=== PATIENT | male | born 1950 | race Caucasian/White ===

== ENCOUNTER 2019-01-08 20:44 | Inpatient (IN) ==
--- NOTE | 2019-01-08 20:50 | PROVIDER DOCUMENTATION ---
HPI-General Adult - General Stated Complaint: ams Time Seen by Provider: 01/08/19 20:49 Source: EMS Allergies/Adverse Reactions: Patient Allergies Allergy/AdvReac Type Severity Reaction Status Date / Time No Known Allergies Allergy Verified 11/13/13 11:38 Home Medications: Home Medication List Medication Instructions Recorded Confirmed Last Taken Type Metoprolol [Lopressor] 25 mg PO DAILY 07/10/14 01/08/19 Unknown History Tamsulosin [Flomax] 0.4 mg PO QHS 07/10/14 01/08/19 Unknown History Arginine/Glutamine/Calcium Bmb 1 ea PO BID 01/08/19 01/08/19 Unknown History [Harish Packet] Aspirin [Aspir-Low] 81 mg PO DAILY 01/08/19 01/08/19 Unknown History Cyanocobalamin (Vitamin B-12) 2,000 mcg PO DAILY 01/08/19 01/08/19 Unknown History [Vitamin B-12] Divalproex Sodium [Depakote] 500 mg PO QHS 01/08/19 01/08/19 Unknown History Donepezil [Aricept] 10 mg PO QHS 01/08/19 01/08/19 Unknown History Famotidine [Pepcid] 40 mg PO DAILY 01/08/19 01/08/19 Unknown History Fluoxetine HCl [Prozac] 20 mg PO DAILY 01/08/19 01/08/19 Unknown History Hydrochlorothiazide 25 mg PO DAILY 01/08/19 01/08/19 Unknown History Medroxyprogesterone Acetate 20 mg PO DAILY 01/08/19 01/08/19 Unknown History [Provera] Memantine HCl [Namenda] 10 mg PO BID 01/08/19 01/08/19 Unknown History Mirtazapine [Remeron] 15 mg PO QHS 01/08/19 01/08/19 Unknown History Potassium Chloride 20 meq PO DAILY 01/08/19 01/08/19 Unknown History Rivaroxaban [Xarelto] 2.5 mg PO BID 01/08/19 01/08/19 Unknown History Thiamine [Vitamin B-1] 100 mg PO DAILY 01/08/19 01/08/19 Unknown History Tramadol HCl [Ultram] 50 mg PO Q8H PRN 01/08/19 01/08/19 Unknown History - History of Present Illness -Gen Adult Nature of Presenting Problems: 68 YO M with known recent pna brought in by EMS for AMS that began around 1830 today while at dinner. Pt recently tx for pna with levaquin and completed 7 days. He is on 2L o2 PRN. Review of Systems - Adult - REVIEW OF SYSTEMS - ADULT ROS:: unobtainable per condition Constitutional: reports: see HPI Past History - Adult - PAST MEDICAL HISTORY-ADULT Review of Records: reports: Old Records Reviewed Major Childhood Illnesses: reports: denies history Cardiovascular: reports: HTN Respiratory: reports: denies history Gastrointestinal: reports: denies history Obstetrical/Gynecological: reports: denies history Genitourinary: reports: denies history Musculoskeletal: reports: denies history Neurological: reports: denies history Endocrine/Immune: reports: denies history Other Conditions: reports: denies history - PRIOR SURGERIES/PROCEDURES Surgical/Procedure History: denies: recent surgery - FAMILY HISTORY Family History: reviewed, not pertinent Physical Exam-General - PHYSICAL EXAM-ADULT Initial Vital Signs Reviewed: Yes - CONSTITUTIONAL General Appearance: mild distress, thin, other (incontinent with briefs) - EYES Eyes: other (pinpoint pupils) - HEAD, EARS, NOSE, MOUTH & THROAT HENMT: other (dry mucous membranes) - RESPIRATORY Respiratory: rhonchi (b/l) - CARDIOVASCULAR Cardiovascular: regular rate, rhythm - GASTROINTESTINAL (ABDOMEN) Abdominal Exam: soft - SKIN Integumentary: rash (rash around oral cavity consistent with impetigo) - NEUROLOGIC Neurologic: grossly normal - PSYCHIATRIC Psych/Mental Status: disoriented x 3 Progress - PLAN OF CARE/RESULTS Progress/Plan/Lab Results: Orders Category Date Time Status CHEST-1 VIEW [RAD] Stat Exams 01/08/19 20:48 Ordered ABG [RESP] Routine Lab 01/08/19 20:48 Ordered CBC WITH DIFF [HEME] Stat Lab 01/08/19 20:48 Uncollected COMPREHENSIVE METABOLIC PANEL [CHEM] Stat Lab 01/08/19 20:48 Uncollected PRO B-NATRIURETIC PEPTIDE Stat Lab 01/08/19 20:48 Ordered PROTIME WITH INR [COAG] Stat Lab 01/08/19 20:48 Ordered PTT [COAG] Stat Lab 01/08/19 20:48 Ordered TROPONIN T Stat Lab 01/08/19 20:48 Ordered TSH Stat Lab 01/08/19 20:48 Uncollected EKG [EKG] Stat Ther 01/08/19 20:48 Ordered Result Diagrams: 01/08/19 21:00 01/08/19 21:00 - REASSESSMENT Reassessment #1 Time Reassessed: 21:51 Status: improving (pt has been suctioned. He is now on 4L NC and satting 100%) - EKG 1 Time of EKG reading by physician:: 20:55 EKG Read and Signed by:: Oumar Ren EKG Interpretation (*Must complete 3 of following elements*): Abnormal Rate: 89 Rhythm: a fib QRS: normal, PVC's Prior EKG Comparison: unchanged from prior (July 2014) Comments: non specific ST changes with PVCs - CT/MRI 1 CT Study: Head Impression: See EMR Report (1. no acute intracranial hemorrhage or process. 2. 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 Old lacunar infarcs at the lentiform nuclei and thalami b/l. 3. Age related cerebral volume loss. B/l white matter disease, lickely ischemic microvascular in nature. Signed by Dr. Pooja Raymundo MD) - CONSULTS/PCP/HOSPITALIST Notification #1 *Consult/PCP/Hospitalist*: Dr. Moseley Time Discussed: 12:30 Reason/Comments: states to get CT brain Consult Disposition: Will see in ED Departure - Departure Date of Disposition Decision: 01/09/19 Time of Disposition Decision: 00:52 DIAGNOSIS: Leukocytosis, Hypoxia, AMS (altered mental status), Pneumonia Disposition: ADMITTED INPATIENT 09 Certified Medical Emergency: Emergent Condition: Stable Referrals and Follow-Ups: Jose Juan Cho III, MD [Primary Care Provider] - - Critical Care Note This patient required my direct & personal management of CC.: No Attestation - Physician/ KATIE Attestation The physician spent face to face time with patient:: Yes Advanced Practice Provider documentation review:: Supervising physician onsite and consulted in the evaluation and care of this patient. The physician did have a face to face encounter with the patient.
[2019-01-08 20:57] LABS: ALLEN TEST YES; BE 4.5 mmoll (-3.0-3.0); BLOOD TYPE ARTERIAL; HCO3-(ACT) 28.3 mmoll (20.0-26.0); METHB 1.3 % (0.0-1.5); O2(CT) 18.8 mL/dL (15.0-23.0); O2HB 93.6 % (95.0-99.0); PCO2(98.6) 39 mmHg (35-45); PO2(98.6) 68 mmHg (60-100); SAMPLE BLOOD; SAO2 97.1 % (95.0-100.0); THB 14.3 g/dL (11.5-17.4); pH(98.6) 7.47 (7.35-7.45)
[2019-01-08 20:59] LABS: MODALITY CANNULA
--- NOTE | 2019-01-08 21:13 | Diag Imaging Result Doc PS360 ---
EXAM: CHEST-1 VIEW HISTORY: hypoxia TECHNIQUE: Single view COMPARISON: 07/17/2014 FINDINGS: The lungs are well expanded. The heart is not enlarged. The vessels are not distended. There are increased markings in the lower left lung. No effusion identified. IMPRESSION: Small left basilar infiltrate versus atelectasis. Electronically signed by Parish Zurita 01/08/2019 9:10 PM
--- NOTE | 2019-01-08 21:19 | EKG Report ---
Test Performed on : 01/08/2019 8:50:05 PM Test Reason : RESP DISTRESS Blood Pressure : / mmHG Vent. Rate : 089 BPM Atrial Rate : 098 BPM P-R Int : 000 ms QRS Dur : 060 ms QT Int : 370 ms P-R-T Axes : 000 034 044 degrees QTc Int : 450 ms Atrial fibrillation. with occasional atrial-paced complexes and with premature ventricular or aberran tly conducted complexes. Nonspecific ST abnormality Abnormal ECG When compared with ECG of 10-JUL-2014 19:08, Electronic atrial pacemaker has replaced Sinus rhythm. ST elevation now present in Inferior leads ST now depressed in Anterior leads Nonspecific T wave abnormality, improved in Inferior leads Nonspecific T wave abnormality no longer evident in Lateral leads Unconfirmed Result
[2019-01-08 21:22] LABS: BASO# 0.07 X1000 (0.0-0.2); BASO% 0.3 % (0.0-0.8); EOS# 0.04 X1000 (0.0-0.7); EOS% 0.2 % (0.0-10.0); HEMATOCRIT 44.5 % (42.0-52.0); IMM GRAN# 0.23 X1000 (0.0-0.04); INR 1.23; LYMPH# 2.65 X1000 (1.2-3.4); LYMPH% 11.8 % (20.5-51.1); MCH 34.3 PG (27-31); MCHC 31.5 g/dL (33-37); MCV 109.1 FL (81-99); MONO# 2.93 X1000 (0.11-0.59); MONO% 13.1 % (1.7-9.3); MPV 11.7 FL (7.4-10.4); NEUT# 16.53 X1000 (1.4-6.5); NEUT% 73.6 % (42.2-75.2); PLT 249 X1000 (130-400); PROTIME 15.7 Seconds (11.0-16.0); RBC 4.08 XMIL (4.7-6.1); RDW 15.2 % (11.5-14.5); WBC 22.45 X1000 (4.8-10.8)
[2019-01-08 21:23] LABS: PTT 40.5 Seconds (22.3-41.8)
[2019-01-08 21:42] LABS: ALB/GLOB RATIO 0.9; ALBUMIN 3.2 g/dL (3.5-5.0); CALCIUM 9.3 mg/dL (8.8-10.2); CREATININE 1.4 mg/dL (0.7-1.2); POTASSIUM 3.8 mmol/L (3.5-5.1); TOTAL BILIRUBIN 0.56 mg/dL (0.20-1.00); TOTAL PROTEIN 6.9 g/dL (6.3-8.3)
[2019-01-08 21:57] LABS: URINE SOURCE CATH
[2019-01-08 22:27] LABS: BILIRUBIN URINE NEGATIVE (NEGATIVE); BLOOD URINE NEGATIVE (NEGATIVE); COLOR YELLOW; GLUCOSE URINE NEGATIVE (NEGATIVE); KETONE URINE NEGATIVE (NEGATIVE); LEUKOCYTES URINE NEGATIVE (NEGATIVE); NITRITE URINE NEGATIVE (NEGATIVE); PH URINE 6.5; PROTEIN URINE NEGATIVE (NEGATIVE); TURBIDITY URINE CLEAR (CLEAR); UROBILINOGEN URINE NORMAL (NORMAL)
[2019-01-08 22:28] LABS: UR EPITHELIAL CELLS <10 /HPF (<10); URINE BACTERIA NEGATIVE /HPF; URINE RBC <10 /HPF (<10); URINE WBC <10 /HPF (<10)
[2019-01-08] MEDS ORDERED: ROCEPHIN 1 GM in NS 50 ML IV ONE (23:10)
[2019-01-09] MEDS: NS 1,000 ML IV SCH ×2 (04:15→17:14)
[2019-01-09] MEDS: ZOSYN 3.375 GM in NS 50 ML IV SCH ×4 (04:22→22:21)
--- NOTE | 2019-01-09 07:40 | Diag Imaging Result Doc PS360 ---
EXAM: CT HEAD W/O CONTRAST INDICATION: AMS TECHNIQUE: This exam was performed using automated exposure control, adjustment of mA or kV according to patient size, and/or use of iterative reconstruction technique. COMPARISON: 07/10/2014 FINDINGS: There is stable left occipital encephalomalacia. There are stable chronic lacunar infarcts involving the deep lui matter bilaterally. There is stable advanced white matter microangiopathy. There is no definite acute infarct given the limited sensitivity of CT versus MRI. There is no discrete intracranial mass, mass effect, or intracranial hemorrhage. The surrounding soft tissues and bony structures are essentially unremarkable. IMPRESSION: Stable chronic changes as described. No evidence of acute intracranial pathology by CT. Electronically signed by Jose Juan Amado 01/09/2019 7:38 AM
--- NOTE | 2019-01-09 08:21 | HISTORY AND PHYSICAL ---
PRIMARY CARE PHYSICIAN: Unknown. CHIEF COMPLAINT: Altered mental status. HISTORY OF PRESENTING ILLNESS: 68-year-old male who was sent from [facility] due to patient being altered more than usual. The patient does have a history of hypertension, previous alcohol dependence and BPH. Apparently patient was not arousable at the facility. He is brought to the emergency department. He is moderately confused. He only answers a few questions and there was no family to provide any other history. Most of the history is obtained from the ER charting and previous records. PAST MEDICAL HISTORY: Includes hypertension, alcohol dependence, BPH, vascular dementia, adjustment disorder. PAST SURGICAL HISTORY: Unknown. ALLERGIES: No known drug allergies. CURRENT MEDICATIONS: He does not know and nursing staff will reconcile from shelter records. SOCIAL HISTORY: He has a history of smoking cigarettes. Previous history of alcohol abuse. No history of drug use. FAMILY HISTORY: No history of coronary disease. REVIEW OF SYSTEM: Unable to obtain due to patient being altered. PHYSICAL EXAMINATION: GENERAL: The patient is resting comfortably. He is without any respiratory distress. VITAL SIGNS: Temperature 97.2 degrees, pulse 92, respirations 20, blood pressure 101/56. HEENT: Atraumatic, normocephalic. PERRLA. NECK: No masses. CHEST: Rhonchi. CARDIOVASCULAR: Regular rate and rhythm. ABDOMEN: Soft. Positive bowel sounds. EXTREMITIES: Trace edema. NEUROLOGIC: Patient is arousable to follow some commands. : No bladder distention. SKIN: Warm. LABORATORIES AND STUDIES: Sodium 143, potassium 3.8, chloride 99, CO2 is 28, BUN is 27, creatinine is 1.4. Glucose 103. Total BC 22.45, hemoglobin 14.1, hematocrit. 44.5, platelets 249,000. Chest x-ray shows small left basilar infiltrate. CT of the head is pending. ASSESSMENT: A 68-year-old male with: 1. A history of vascular dementia. 2. Hypertension. 3. Alcohol dependence. 4. Adjustment disorder sent from [facility] due to patient being more altered than his baseline. He was evaluated in the emergency department. He was mildly confused and it was suspected he possibly had pneumonia. We will admit him for further evaluation and management assessment. 5. Altered mental status. 6. Suspected pneumonia. 7. Leukocytosis. 8. Hypertension. PLAN: 1. We will admit patient to medical floor with telemetry. 2. Continue with neuro checks. 3. We will check blood cultures. Start patient on IV antibiotics. 4. We will monitor blood pressure closely. 5. Restart his home medications. 6. Put patient on DVT prophylaxis with SCDs. 7. We will continue to follow and reassess. Make further recommendation based on patient's clinical course. cc: Khurram Moseley MD
[2019-01-09] MEDS ORDERED: NON-FORMULARY MED (Arginine/Glutamine/Calcium Bmb [Juven Packet] 1 EA) PO SCH (09:00)
[2019-01-09] MEDS: HYDROCHLOROTHIAZIDE PO SCH (10:25)
[2019-01-09] MEDS: VITAMIN B-1 PO SCH (10:25)
[2019-01-09] MEDS: LOPRESSOR PO SCH (10:25)
[2019-01-09] MEDS: PEPCID PO SCH (10:26)
[2019-01-09] MEDS: PROZAC PO SCH (10:26)
[2019-01-09] MEDS: NAMENDA PO SCH ×2 (10:26→20:25)
[2019-01-09] MEDS: XARELTO PO SCH ×2 (10:26→20:26)
[2019-01-09] MEDS: VITAMIN B-12 PO SCH (10:26)
[2019-01-09] MEDS: ASPIRIN EC PO SCH (12:33)
[2019-01-09] MEDS: DUONEB (A & A) INH SCH ×3 (15:33→23:41)
[2019-01-09] MEDS: REMERON PO SCH (20:25)
[2019-01-09] MEDS: FLOMAX PO SCH (20:25)
[2019-01-09] MEDS: DEPAKOTE PO SCH (20:25)
[2019-01-09] MEDS: ARICEPT PO SCH (20:25)
[2019-01-10] MEDS: DUONEB (A & A) INH SCH ×6 (03:18→22:44)
[2019-01-10] MEDS: ZOSYN 3.375 GM in NS 50 ML IV SCH ×4 (03:35→21:56)
[2019-01-10 05:25] LABS: BASO# 0.08 X1000 (0.0-0.2); BASO% 0.5 % (0.0-0.8); EOS# 0.29 X1000 (0.0-0.7); EOS% 1.9 % (0.0-10.0); HEMATOCRIT 38.2 % (42.0-52.0); HEMOGLOBIN 11.7 g/dL (14.0-18.0); IMM GRAN# 0.17 X1000 (0.0-0.04); IMM GRAN% 1.1 % (0.0-0.5); LYMPH# 3.17 X1000 (1.2-3.4); LYMPH% 20.9 % (20.5-51.1); MCH 33.9 PG (27-31); MCHC 30.6 g/dL (33-37); MCV 110.7 FL (81-99); MONO# 1.66 X1000 (0.11-0.59); MONO% 10.9 % (1.7-9.3); MPV 11.3 FL (7.4-10.4); NEUT# 9.81 X1000 (1.4-6.5); NEUT% 64.7 % (42.2-75.2); PLT 222 X1000 (130-400); RBC 3.45 XMIL (4.7-6.1); RDW 15.2 % (11.5-14.5); WBC 15.18 X1000 (4.8-10.8)
[2019-01-10 05:58] LABS: CALCIUM 8.7 mg/dL (8.8-10.2); CREATININE 1.3 mg/dL (0.7-1.2); POTASSIUM 3.1 mmol/L (3.5-5.1)
--- NOTE | 2019-01-10 06:58 | Diag Imaging Result Doc PS360 ---
CHEST-PORTABLE - 01/10/2019 INDICATION: dyspnea COMPARISON: 01/08/2019 FINDINGS: Lung volumes are much lower. There is worsening ill-defined interstitial infiltrate in the lung bases bilaterally, nonspecific. Heart size is top normal. No pneumothorax or large pleural effusion. IMPRESSION: Worsening from prior. Electronically signed by Alexx Siddiqui 01/10/2019 6:56 AM
[2019-01-10] MEDS: HYDROCHLOROTHIAZIDE PO SCH (09:48)
[2019-01-10] MEDS: ASPIRIN EC PO SCH (09:48)
[2019-01-10] MEDS: VITAMIN B-1 PO SCH (09:48)
[2019-01-10] MEDS: PEPCID PO SCH (09:49)
[2019-01-10] MEDS: VITAMIN B-12 PO SCH (09:49)
[2019-01-10] MEDS: LOPRESSOR PO SCH (09:49)
[2019-01-10] MEDS: PROZAC PO SCH (09:50)
[2019-01-10] MEDS: NAMENDA PO SCH ×2 (09:51→20:16)
[2019-01-10] MEDS ORDERED: KLOR-CON PO ONE (11:08)
[2019-01-10] MEDS: XARELTO PO SCH (11:26)
--- NOTE | 2019-01-10 12:28 | PROGRESS NOTE ---
DATE: 01/10/2019 SUBJECTIVE: This patient seems to be resting comfortably in bed. He is tolerating p.o. He has bilateral lower lung infiltrates compatible with pneumonia. Vital signs are stable. White blood cell count decreased from 22,000 to 15,000. We will monitor for now. I will replace the potassium. Kidney function probably at baseline. OBJECTIVE: Vital Signs: Temperature 97.9 degrees, pulse 62, respiratory rate 18, blood pressure 116/52, oxygen saturation 99 on 3 L of nasal cannula. HEENT: Head normocephalic. No trauma. PERRLA. Neck: Supple. No JVD. No masses. Central trachea. Chest: Decreased breath sounds at the bases with crepitus. Abdomen: Soft, nontender, nondistended. No hepatosplenomegaly. Extremities: Trace edema. No clubbing, no cyanosis. Neurological Examination: The patient is sleepy but arousable. He is oriented to name. He is following commands. Laboratory: WBC 15.1, hemoglobin 11.7, hematocrit 38.2, platelets 222,000. Sodium 144, potassium 3.1, chloride 102, bicarbonate 29, BUN 22, creatinine 1.3, glucose 110, calcium 8.7. ASSESSMENT AND PLAN: 1. Sepsis due to lower lobe pneumonia. Continue with antibiotics. WBC seems to be better. He has been placed on Zosyn. Blood culture negative so far. Pending sputum culture. 2. Bilateral lower lobe pneumonia, as above. 3. Hypokalemia. I will replace the potassium. 4. Chronic kidney disease, seems to be his baseline. 5. History of vascular dementia with worsening baseline, probably due to this infection. We will continue to monitor. He seems to be more stable. 6. Hypertension, stable. Continue with same medications. 7. History of alcohol dependence. Aware. 8. Altered mental status. Like I mentioned before, this patient has a history of vascular dementia but he was transferred to this medical center due to worsening of his mental condition. He was found to have a pneumonia, which has been treated. cc: Bryant Freedman MD
[2019-01-10] MEDS: ARICEPT PO SCH (20:15)
[2019-01-10] MEDS: FLOMAX PO SCH (20:15)
[2019-01-10] MEDS: REMERON PO SCH (20:15)
[2019-01-10] MEDS: NON-FORMULARY MED PO SCH (20:15)
[2019-01-10] MEDS: DEPAKOTE PO SCH (20:16)
[2019-01-11] MEDS: ZOSYN 3.375 GM in NS 50 ML IV SCH ×2 (02:47→11:43)
[2019-01-11] MEDS: DUONEB (A & A) INH SCH ×6 (03:10→23:23)
[2019-01-11 05:31] LABS: BASO# 0.09 X1000 (0.0-0.2); BASO% 0.6 % (0.0-0.8); EOS# 0.32 X1000 (0.0-0.7); EOS% 2.2 % (0.0-10.0); HEMATOCRIT 40.9 % (42.0-52.0); IMM GRAN# 0.13 X1000 (0.0-0.04); IMM GRAN% 0.9 % (0.0-0.5); LYMPH# 3.11 X1000 (1.2-3.4); LYMPH% 20.9 % (20.5-51.1); MCH 34.6 PG (27-31); MCHC 31.8 g/dL (33-37); MCV 108.8 FL (81-99); MONO# 1.68 X1000 (0.11-0.59); MONO% 11.3 % (1.7-9.3); NEUT# 9.53 X1000 (1.4-6.5); NEUT% 64.1 % (42.2-75.2); PLT 231 X1000 (130-400); RBC 3.76 XMIL (4.7-6.1); RDW 14.9 % (11.5-14.5); WBC 14.86 X1000 (4.8-10.8)
[2019-01-11 06:07] LABS: CALCIUM 8.9 mg/dL (8.8-10.2); CREATININE 1.2 mg/dL (0.7-1.2); POTASSIUM 3.5 mmol/L (3.5-5.1)
[2019-01-11] MEDS: VITAMIN B-1 PO SCH (08:16)
[2019-01-11] MEDS: VITAMIN B-12 PO SCH (08:16)
[2019-01-11] MEDS: LOPRESSOR PO SCH (08:16)
[2019-01-11] MEDS: PROZAC PO SCH (08:17)
[2019-01-11] MEDS: PEPCID PO SCH (08:17)
[2019-01-11] MEDS: ASPIRIN EC PO SCH (08:17)
[2019-01-11] MEDS: NON-FORMULARY MED PO SCH ×2 (08:17→21:26)
[2019-01-11] MEDS: NAMENDA PO SCH ×2 (08:17→21:25)
[2019-01-11] MEDS: HYDROCHLOROTHIAZIDE PO SCH (08:17)
[2019-01-11] MEDS: PROVERA PO SCH ×2 (11:44→11:56)
[2019-01-11] MEDS ORDERED: VANCOMYCIN IV PER PHARMACY MISC SCH (14:45)
[2019-01-11] MEDS ORDERED: MAGNESIUM SULFATE 2 GM/S.W.I. 2 GM/50 ML IVPB IV ONE (15:07)
[2019-01-11] MEDS ORDERED: VANCOMYCIN 1,650 MG in NS 250 ML IV ONE (16:00)
[2019-01-11] MEDS: MAXIPIME 2 GM in NS 100 ML IV SCH (16:26)
[2019-01-11] MEDS ORDERED: HEPARIN SUBQ SCH (21:00)
[2019-01-11] MEDS: FLOMAX PO SCH (21:25)
[2019-01-11] MEDS: ARICEPT PO SCH (21:25)
[2019-01-11] MEDS: REMERON PO SCH (21:25)
[2019-01-11] MEDS: DEPAKOTE PO SCH (21:25)
[2019-01-12] MEDS: CALMOSEPTINE OINTMENT TOP PRN (03:08)
[2019-01-12] MEDS: MAXIPIME 2 GM in NS 100 ML IV SCH ×2 (03:09→14:09)
[2019-01-12] MEDS: DUONEB (A & A) INH SCH ×6 (03:19→23:12)
--- NOTE | 2019-01-12 03:51 | PROGRESS NOTE ---
DATE: 01/11/2019 SUBJECTIVE: The patient is resting comfortably in bed. No acute events noted overnight. OBJECTIVE: Vital signs: Temperature 98 degrees, blood pressure 106/42, heart rate 72, respirations 12, O2 saturation 97% on room air. General: This is a chronically ill-appearing elderly male lying in bed in no acute distress. Heart: S1, S2 normal. Regular rate and rhythm. Lungs: Equal air entry bilaterally. No wheezing, no rales, no rhonchi. Abdomen: Positive bowel sounds, soft, nontender, nondistended. Extremities: No edema, no cyanosis. Neuro: The patient is awake and alert. LABS: White blood cell count 14, hemoglobin 13, hematocrit 40, platelets 231,000. Sodium 143, potassium 3.5, chloride 103, CO2 24, BUN 19, creatinine 1.2, glucose 87. Magnesium 1.5. ASSESSMENT AND PLAN: 1. Pneumonia. Continue with broad spectrum antibiotics. The x-ray from yesterday looks a little worse. We will switch the patient's antibiotics. Continue to follow up on the blood and sputum cultures. 2. Acute kidney injury on chronic kidney disease. Improved. Will continue to monitor closely. 3. Hypomagnesemia. Will replace the patient's magnesium. 4. History of alcohol dependence. Aware. 5. Hypertension. Controlled. 6. Dementia. Aware. 7. Vitamin B12 deficiency. Continue with vitamin B12 replacement. 8. Benign prostatic hypertrophy. Continue on Flomax. 9. Deep vein thrombosis prophylaxis. Will start the patient on heparin. cc: Sidra Sherman MD
[2019-01-12 05:36] LABS: BASO# 0.08 X1000 (0.0-0.2); BASO% 0.6 % (0.0-0.8); EOS# 0.49 X1000 (0.0-0.7); EOS% 3.6 % (0.0-10.0); HEMATOCRIT 41.8 % (42.0-52.0); HEMOGLOBIN 13.3 g/dL (14.0-18.0); IMM GRAN# 0.23 X1000 (0.0-0.04); IMM GRAN% 1.7 % (0.0-0.5); LYMPH# 2.95 X1000 (1.2-3.4); LYMPH% 21.7 % (20.5-51.1); MCH 33.7 PG (27-31); MCHC 31.8 g/dL (33-37); MCV 105.8 FL (81-99); MONO# 1.35 X1000 (0.11-0.59); MONO% 9.9 % (1.7-9.3); MPV 10.4 FL (7.4-10.4); NEUT# 8.51 X1000 (1.4-6.5); NEUT% 62.5 % (42.2-75.2); PLT 267 X1000 (130-400); RBC 3.95 XMIL (4.7-6.1); RDW 14.8 % (11.5-14.5); WBC 13.61 X1000 (4.8-10.8)
[2019-01-12 05:45] LABS: AGAP 8; ALBUMIN 2.6 g/dL (3.5-5.0); BUN 17 mg/dL (8-22); CALCIUM 8.8 mg/dL (8.8-10.2); CHLORIDE 99 mmol/L (98-107); COSMO 268; CREATININE 1.1 mg/dL (0.7-1.2); ESTIMATED GFR > 60; GLUCOSE 91 mg/dL (70-104); PHOSPHORUS 2.9 mg/dL (2.7-4.5); POTASSIUM 3.4 mmol/L (3.5-5.1); SODIUM 133 mmol/L (136-145); TCO2 26 mmol/L (25-35)
--- NOTE | 2019-01-12 06:28 | Diag Imaging Result Doc PS360 ---
EXAM: CHEST-1 VIEW HISTORY: pneumonia TECHNIQUE: Chest single view COMPARISON: 01/10/2019 FINDINGS: Poor inspiratory effort. Heart is borderline mildly prominent. No pleural effusions identified. Slight worsening in the lower left lung infiltrates. There are scattered granuloma. IMPRESSION: Mild interval worsening Electronically signed by Parish Zurita 01/12/2019 6:26 AM
[2019-01-12] MEDS ORDERED: KLOR-CON PO ONE (06:55)
[2019-01-12] MEDS: PEPCID PO SCH (10:00)
[2019-01-12] MEDS: VITAMIN B-12 PO SCH (10:00)
[2019-01-12] MEDS: PROVERA PO SCH ×2 (10:00→10:02)
[2019-01-12] MEDS: HYDROCHLOROTHIAZIDE PO SCH (10:00)
[2019-01-12] MEDS: LOPRESSOR PO SCH (10:01)
[2019-01-12] MEDS: NAMENDA PO SCH ×2 (10:01→21:17)
[2019-01-12] MEDS: VITAMIN B-1 PO SCH (10:02)
[2019-01-12] MEDS: PROZAC PO SCH (10:02)
[2019-01-12] MEDS: NON-FORMULARY MED PO SCH ×2 (10:02→22:25)
[2019-01-12] MEDS: ASPIRIN EC PO SCH (10:02)
--- NOTE | 2019-01-12 19:26 | PROGRESS NOTE ---
DATE: 01/12/2019 SUBJECTIVE: The patient is resting comfortably in bed. No acute events noted overnight. OBJECTIVE: Vital Signs: Temperature 98.6 degrees, blood pressure 112/53, heart rate 65, respirations 16, O2 saturation 97% on room air. General: This is a chronically ill-appearing elderly male lying in bed in no acute distress. Heart: S1, S2 normal. Regular rate and rhythm. Lungs: Equal air entry bilaterally. Abdomen: Positive bowel sounds. Soft, nontender, nondistended. Extremities: No edema. No cyanosis. Neurologic: The patient is awake and alert. LABORATORY DATA: White blood cell count 13, hemoglobin 13, hematocrit 41, platelets 267,000. Sodium 133, potassium 3.4, chloride 99, CO2 26, BUN 17, creatinine 1.1, glucose 91. Chest x-ray shows slight worsening in the left lung infiltrates. ASSESSMENT AND PLAN: 1. Acute hypoxemic respiratory failure. The patient has pneumonia. 2. Pneumonia. Continue with antibiotic therapy, bronchodilator therapy and supplemental oxygen. 3. Hypokalemia. Replace patient's potassium. 4. Dementia. Aware. 5. History of alcohol dependence. Aware. 6. Hypertension. Controlled. 7. Benign prostatic hypertrophy. Continue on Flomax. 8. Vitamin B12 deficiency. Continue with vitamin B12 replacement. 9. Deep vein thrombosis prophylaxis. Continue on heparin. 10. Disposition. The patient is from [place]. He will return there once medically stable. cc: Sidra Sherman MD
[2019-01-12] MEDS: FLOMAX PO SCH (21:17)
[2019-01-12] MEDS: ARICEPT PO SCH (21:17)
[2019-01-12] MEDS: REMERON PO SCH (21:17)
[2019-01-12] MEDS: DEPAKOTE PO SCH (21:17)
[2019-01-13] MEDS: MAXIPIME 2 GM in NS 100 ML IV SCH ×2 (01:49→18:35)
[2019-01-13] MEDS: VANCOMYCIN 1,300 MG in NS 250 ML IV SCH (03:04)
[2019-01-13] MEDS: DUONEB (A & A) INH SCH ×6 (03:10→22:45)
[2019-01-13 06:03] LABS: BASO# 0.07 X1000 (0.0-0.2); BASO% 0.4 % (0.0-0.8); EOS# 0.64 X1000 (0.0-0.7); HEMATOCRIT 39.8 % (42.0-52.0); HEMOGLOBIN 12.7 g/dL (14.0-18.0); IMM GRAN# 0.28 X1000 (0.0-0.04); IMM GRAN% 1.8 % (0.0-0.5); LYMPH# 3.83 X1000 (1.2-3.4); LYMPH% 24.1 % (20.5-51.1); MCH 34.3 PG (27-31); MCHC 31.9 g/dL (33-37); MCV 107.6 FL (81-99); MONO# 1.58 X1000 (0.11-0.59); MONO% 9.9 % (1.7-9.3); MPV 10.9 FL (7.4-10.4); NEUT# 9.49 X1000 (1.4-6.5); NEUT% 59.8 % (42.2-75.2); PLT 270 X1000 (130-400); RDW 15.5 % (11.5-14.5); WBC 15.89 X1000 (4.8-10.8)
[2019-01-13 06:19] LABS: ALBUMIN 2.7 g/dL (3.5-5.0); CALCIUM 8.8 mg/dL (8.8-10.2); CREATININE 1.2 mg/dL (0.7-1.2); PHOSPHORUS 2.4 mg/dL (2.7-4.5); POTASSIUM 3.8 mmol/L (3.5-5.1)
[2019-01-13] MEDS: NON-FORMULARY MED PO SCH ×2 (09:05→20:13)
[2019-01-13] MEDS: PROVERA PO SCH (09:05)
[2019-01-13] MEDS: HYDROCHLOROTHIAZIDE PO SCH (09:06)
[2019-01-13] MEDS: ASPIRIN EC PO SCH (09:06)
[2019-01-13] MEDS: PEPCID PO SCH (09:06)
[2019-01-13] MEDS: VITAMIN B-12 PO SCH (09:06)
[2019-01-13] MEDS: LOPRESSOR PO SCH (09:06)
[2019-01-13] MEDS: PROZAC PO SCH (09:07)
[2019-01-13] MEDS: VITAMIN B-1 PO SCH (09:07)
[2019-01-13] MEDS: NAMENDA PO SCH ×2 (09:07→20:12)
--- NOTE | 2019-01-13 09:58 | Diag Imaging Result Doc PS360 ---
EXAM: CT THORAX W/O CONTRAST INDICATION: pneumonia TECHNIQUE: This exam was performed using automated exposure control, adjustment of mA or kV according to patient size, and/or use of iterative reconstruction technique. COMPARISON: None. FINDINGS: There is excessive respiratory motion artifact, which may obscure fine details. There are patchy airspace infiltrates seen throughout the left lower lobe and the anteroinferior aspect of the left upper lobe. There are much milder infiltrates involving the right lower lobe and right middle lobe. This is suggestive of pneumonia. There is also a component of subsegmental atelectasis involving the left lower lobe and the lingula. There are scattered calcified granulomata bilaterally. There is no significant pleural fluid collection and no pneumothorax. There is no cardiomegaly. There is aortic and coronary artery atherosclerotic calcification. There is no evidence of significant mediastinal or hilar lymphadenopathy. Limited views of the upper abdomen are essentially unremarkable. There is no evidence of acute osseous abnormality. IMPRESSION: 1.Moderate patchy airspace infiltrates involving the left lower lung zone and very mild infiltrates at the right lower lung zone suggesting pneumonia and a likely component of atelectasis on the left. 2.Other incidental/nonacute findings detailed above. Electronically signed by Jose Juan Amado 01/13/2019 9:56 AM
--- NOTE | 2019-01-13 18:03 | PROGRESS NOTE ---
DATE: 01/13/2019 SUBJECTIVE: The patient is resting comfortably in bed. No acute events noted overnight. OBJECTIVE: Vital Signs: Temperature 98.3 degrees, blood pressure 138/66, heart rate 94, respirations 16, O2 saturation is 94% on 3 L nasal cannula. Intake 750. General: This is a chronically ill-appearing, elderly male, lying in bed in no acute distress. Heart: S1, S2 normal. Regular rate and rhythm. Lungs: Equal air entry bilaterally. Coarse breath sounds bilaterally. Abdomen: Positive bowel sounds. Soft, nontender, nondistended. Extremities: No edema. No cyanosis. Neurologic: The patient is alert and oriented x3. LABORATORY DATA: White blood cell count 15, hemoglobin 12, hematocrit 39, platelets 270,000. Sodium 139, potassium 3.8, chloride 104, CO2 of 25, BUN 16, creatinine 1.2, glucose 91. ASSESSMENT AND PLAN: 1. Acute hypoxemic respiratory failure. 2. Bilateral lobe pneumonia. Continue with cefepime and Zyvox. 3. Dementia. Aware. 4. Hypertension. Controlled. 5. Benign prostatic hypertrophy. Continue on Flomax. 6. Vitamin B12 deficiency. Continue with vitamin B12 replacement. 7. Deep vein thrombosis prophylaxis. Continue on heparin. 8. Disposition. The patient is from [facility]. cc: Sidra Sherman MD
[2019-01-13] MEDS: FLOMAX PO SCH (20:12)
[2019-01-13] MEDS: ARICEPT PO SCH (20:12)
[2019-01-13] MEDS: DEPAKOTE PO SCH (20:12)
[2019-01-13] MEDS: REMERON PO SCH (20:12)
[2019-01-13] MEDS: CALMOSEPTINE OINTMENT TOP PRN (21:30)
[2019-01-14] MEDS: MAXIPIME 2 GM in NS 100 ML IV SCH ×2 (02:52→17:06)
[2019-01-14] MEDS: DUONEB (A & A) INH SCH ×6 (04:04→22:49)
[2019-01-14 06:56] LABS: BASO# 0.18 X1000 (0.0-0.2); BASO% 1.4 % (0.0-0.8); EOS# 0.66 X1000 (0.0-0.7); EOS% 5.2 % (0.0-10.0); HEMATOCRIT 40.9 % (42.0-52.0); HEMOGLOBIN 13.5 g/dL (14.0-18.0); IMM GRAN# 0.44 X1000 (0.0-0.04); IMM GRAN% 3.4 % (0.0-0.5); LYMPH# 3.39 X1000 (1.2-3.4); LYMPH% 26.5 % (20.5-51.1); MCH 35.2 PG (27-31); MCV 106.5 FL (81-99); MONO# 1.17 X1000 (0.11-0.59); MONO% 9.1 % (1.7-9.3); MPV 10.4 FL (7.4-10.4); NEUT# 6.95 X1000 (1.4-6.5); NEUT% 54.4 % (42.2-75.2); PLT 250 X1000 (130-400); RBC 3.84 XMIL (4.7-6.1); RDW 15.3 % (11.5-14.5); WBC 12.79 X1000 (4.8-10.8)
[2019-01-14 07:03] LABS: AGAP 11; ALBUMIN 2.8 g/dL (3.5-5.0); BUN 12 mg/dL (8-22); CALCIUM 8.7 mg/dL (8.8-10.2); CHLORIDE 103 mmol/L (98-107); COSMO 271; CREATININE 1.1 mg/dL (0.7-1.2); ESTIMATED GFR > 60; GLUCOSE 81 mg/dL (70-104); PHOSPHORUS 3.2 mg/dL (2.7-4.5); POTASSIUM 3.7 mmol/L (3.5-5.1); SODIUM 136 mmol/L (136-145); TCO2 22 mmol/L (25-35)
[2019-01-14] MEDS: PEPCID PO SCH (08:18)
[2019-01-14] MEDS: LOPRESSOR PO SCH (08:18)
[2019-01-14] MEDS: NAMENDA PO SCH ×2 (08:18→20:11)
[2019-01-14] MEDS: PROZAC PO SCH (08:19)
[2019-01-14] MEDS: HYDROCHLOROTHIAZIDE PO SCH (08:19)
[2019-01-14] MEDS: ASPIRIN EC PO SCH (08:19)
[2019-01-14] MEDS: VITAMIN B-12 PO SCH (08:19)
[2019-01-14] MEDS: VITAMIN B-1 PO SCH (08:20)
[2019-01-14] MEDS: PROVERA PO SCH (08:20)
[2019-01-14] MEDS: NON-FORMULARY MED PO SCH ×2 (08:21→20:12)
--- NOTE | 2019-01-14 13:57 | PROGRESS NOTE ---
DATE: 01/14/2019 SUBJECTIVE: The patient is resting comfortably in bed. No acute events noted overnight. He has no complaints. OBJECTIVE: Vital Signs: Temperature 97.9 degrees, blood pressure 140/67, heart rate 75, respirations 16, O2 saturation 98% on 2 L nasal cannula. General: This is a chronically ill- appearing elderly male lying in bed in no acute distress. Heart: S1, S2 normal. Regular rate and rhythm. Lungs: Equal air entry bilaterally. No wheezing. No rales. No rhonchi. Abdomen: Positive bowel sounds. Soft, nontender, nondistended. Extremities: No edema, no cyanosis. Neurologic: The patient is awake and alert. LABS: White blood cell count 12, hemoglobin 13, hematocrit 40, platelets 250,000. Sodium 136, potassium 3.7, chloride 103, CO2 22, BUN 12, creatinine 1.1, glucose 81. ASSESSMENT AND PLAN: 1. Acute hypoxemic respiratory failure. Continue to treat the underlying pneumonia. 2. Bilateral pneumonia. Continue with cefepime and Zyvox. 3. Hypertension. Controlled. 4. Benign prostatic hypertrophy. Continue on Flomax. 5. Dementia. Continue on Aricept and Namenda. 6. Situational depression. Continue on Prozac. 7. History of alcohol dependence. Aware. 8. Continue with physical therapy. 9. Disposition. Once the patient is medically stable, the patient can return to [facility]. cc: Sidra Sherman MD
[2019-01-14] MEDS: VANCOMYCIN 1,300 MG in NS 250 ML IV SCH (18:21)
[2019-01-14] MEDS: DEPAKOTE PO SCH (20:11)
[2019-01-14] MEDS: ARICEPT PO SCH (20:12)
[2019-01-14] MEDS: HEPARIN SUBQ SCH (20:12)
[2019-01-14] MEDS: FLOMAX PO SCH (20:12)
[2019-01-14] MEDS: REMERON PO SCH (20:12)
[2019-01-15] MEDS: MAXIPIME 2 GM in NS 100 ML IV SCH (02:46)
[2019-01-15] MEDS: DUONEB (A & A) INH SCH ×6 (04:34→22:29)
[2019-01-15 05:48] LABS: BASO# 0.22 X1000 (0.0-0.2); BASO% 1.5 % (0.0-0.8); EOS# 0.66 X1000 (0.0-0.7); EOS% 4.6 % (0.0-10.0); HEMATOCRIT 39.7 % (42.0-52.0); HEMOGLOBIN 12.5 g/dL (14.0-18.0); IMM GRAN# 0.52 X1000 (0.0-0.04); IMM GRAN% 3.6 % (0.0-0.5); LYMPH# 3.88 X1000 (1.2-3.4); LYMPH% 27.1 % (20.5-51.1); MCH 34.2 PG (27-31); MCHC 31.5 g/dL (33-37); MCV 108.8 FL (81-99); MONO# 1.34 X1000 (0.11-0.59); MONO% 9.4 % (1.7-9.3); MPV 10.4 FL (7.4-10.4); NEUT# 7.68 X1000 (1.4-6.5); NEUT% 53.8 % (42.2-75.2); PLT 311 X1000 (130-400); RBC 3.65 XMIL (4.7-6.1); RDW 15.3 % (11.5-14.5)
[2019-01-15 06:13] LABS: ALBUMIN 2.7 g/dL (3.5-5.0); CALCIUM 9.3 mg/dL (8.8-10.2); CREATININE 1.2 mg/dL (0.7-1.2); PHOSPHORUS 3.2 mg/dL (2.7-4.5); POTASSIUM 4.2 mmol/L (3.5-5.1)
--- NOTE | 2019-01-15 07:40 | INFECTIOUS DISEASE CONSULT REP ---
DATE: 01/15/2019 CONCLUSION: The patient was admitted to the hospital with pneumonia. It could be due to aspiration. Despite being on good antibiotic coverage, the patient's white count remains elevated and his chest x-ray is not any better. RECOMMENDATIONS: I have discontinued vancomycin and cefepime, and I have started the patient on Zosyn. DISCUSSION: The patient is unable provide a history. No family member is present. The information I got was from the computer. The patient was admitted to the hospital with an altered mental status. His CBC shows a white count of 14,300, hemoglobin 12.5, and platelet count 311,000. Creatinine is 1.2. GFR is 60. Blood and urine cultures are negative. Chest CT scan shows left greater than right lung infiltrates. CT scan of the head shows infarcts and white matter microangiopathy. PAST MEDICAL HISTORY: Includes hypertension, alcoholism, benign prostatic hypertrophy, vascular dementia, and adjustment disorder. PAST SURGICAL HISTORY: Unknown. SOCIAL HISTORY: The [facility]. He previously smoked cigarettes and drank alcoholic beverages. He does not have a history of illicit drug use. ALLERGIES: His chart lists no known drug allergies. MEDICATIONS: Taken at the penitentiary include the following: Depakote, Aricept, Pepcid, Prozac, hydrochlorothiazide, Provera, Namenda, Lopressor, Remeron, Flomax, and tramadol. FAMILY HISTORY: No history of coronary artery disease. PHYSICAL EXAMINATION: Vital Signs: Temperature is 97.5 degrees, pulse 69, respirations 18, blood pressure 125/42. The patient weighs 146 pounds. General: This is a chronically ill-appearing and malnourished-appearing, elderly male. He is in no acute distress. Head, Eyes, Ears, Nose, and Throat: I could not get a good look into the patient's mouth. He does have yellow crusting of the skin on his face. There is no drainage from the nose or ears. Neck: No pain with neck movement. Lungs: Clear to auscultation. Cardiovascular: Heart rate is regular. Abdomen: Soft and nontender. Neurologic: The patient is awake. He did follow requests to move his extremities. When he talked, I could not understand what he was saying. The patient does not have a tremor. When he talked, I could not understand what he was saying. Thank you for the consult. cc: Yovanny Toribio MD
[2019-01-15 07:54] LABS: BANDS 2 % (0-1); EOS 7 % (1-10); LYMPHS 34 % (21-51); MONO 1 % (1-9); SEGS 55 % (42-75)
[2019-01-15] MEDS: ZOSYN 3.375 GM in NS 50 ML IV SCH ×3 (07:59→18:15)
[2019-01-15] MEDS: HYDROCHLOROTHIAZIDE PO SCH (08:14)
[2019-01-15] MEDS: VITAMIN B-1 PO SCH (08:14)
[2019-01-15] MEDS: ASPIRIN EC PO SCH (08:14)
[2019-01-15] MEDS: NAMENDA PO SCH ×2 (08:14→20:22)
[2019-01-15] MEDS: PEPCID PO SCH (08:14)
[2019-01-15] MEDS: VITAMIN B-12 PO SCH (08:14)
[2019-01-15] MEDS: PROZAC PO SCH (08:14)
[2019-01-15] MEDS: NON-FORMULARY MED PO SCH ×2 (08:15→20:23)
[2019-01-15] MEDS: HEPARIN SUBQ SCH ×2 (08:15→20:23)
[2019-01-15] MEDS: PROVERA PO SCH (08:25)
[2019-01-15] MEDS: LOPRESSOR PO SCH (08:25)
--- NOTE | 2019-01-15 09:31 | Diag Imaging Result Doc PS360 ---
EXAM: CHEST-1 VIEW HISTORY: pneumonia TECHNIQUE: Single view. COMPARISON: 01/12/2019 FINDINGS: There is cardiomegaly. There is marked improvement in the left basilar infiltrate with linear atelectasis remaining. Right lung is clear. No pleural effusion. Pulmonary vasculature is not congested. Numerous scattered granulomata are noted. IMPRESSION: Marked improvement left basilar pneumonia. Electronically signed by Puja Polo 01/15/2019 9:28 AM
--- NOTE | 2019-01-15 10:52 | PROGRESS NOTE ---
DATE: 01/15/2019 SUBJECTIVE: The patient is resting comfortably in bed. He is not complaining of pain. He is not short of breath. He is on oxygen. We will call his facility to find out if he was on oxygen before and if he was able to ambulate before as well. It looks like he has a history of vascular dementia, and they sent this patient for worsening mental status changes. He was found to have bilateral lower lobe pneumonia. Infectious Disease Department evaluated this patient today. I will follow their recommendations. Chest x-ray showed a marked improvement in the left basilar pneumonia. I do believe this patient can be discharged in the next 24 to 48 hours. OBJECTIVE: Vital Signs: Temperature 97.5 degrees, pulse 71, respiratory rate 14, blood pressure 158/62, oxygen saturation 95% on 2 L of nasal cannula. HEENT: Head normocephalic, no trauma, PERRLA. General: This is a chronically ill-appearing elderly male in no acute distress. Cardiovascular: Regular rate and rhythm. Chest: Some crepitus at the bases. Abdomen: Soft, nontender, nondistended. No hepatosplenomegaly. Extremities: No edema, no clubbing, no cyanosis. Neurological: This patient is awake, he is alert. He is able to say his name. LABORATORY: WBC 14.3, hemoglobin 12.5, hematocrit 39.7, platelets 311,000. Sodium 138, potassium 4.2, chloride 105, bicarbonate 23, BUN 13, creatinine 1.2, glucose 92, calcium 9.3, albumin 2.7. ASSESSMENT AND PLAN: 1. Acute hypoxemic respiratory failure, likely due to pneumonia. Infectious Disease Department on board. Antibiotic has been changed today. 2. Bilateral pneumonia at the bases. Continue with the same management as directed per Infectious Disease Department. X-ray today looks much better, and he is not complaining of shortness of breath. 3. Hypertension, stable. 4. Benign prostatic hypertrophy. Continue with Flomax. 5. Dementia. Continue with Aricept and Namenda. 6. Situational depression. Continue with Prozac. 7. History of alcohol dependence. Aware. 8. Physical deconditioning. Continue physical therapy. I am not quite sure if this patient was able to walk or do some kind of physical activity before this hospitalization. 9. Disposition. Once this patient is medically stable, I do believe he can go back to [facility]. I do believe this can be in the next 24 to 48 hours. I will discuss the case with Infectious Disease Department before sending this patient back to that place. cc: Bryant Freedman MD
[2019-01-15] MEDS: ARICEPT PO SCH (20:23)
[2019-01-15] MEDS: FLOMAX PO SCH (20:23)
[2019-01-15] MEDS: DEPAKOTE PO SCH (20:23)
[2019-01-15] MEDS: REMERON PO SCH (20:23)
[2019-01-16] MEDS: ZOSYN 3.375 GM in NS 50 ML IV SCH ×2 (00:53→07:02)
[2019-01-16] MEDS: DUONEB (A & A) INH SCH ×3 (03:14→10:52)
[2019-01-16 06:05] LABS: CALCIUM 8.9 mg/dL (8.8-10.2); CREATININE 1.3 mg/dL (0.7-1.2); POTASSIUM 3.2 mmol/L (3.5-5.1)
[2019-01-16 06:06] LABS: IRON SATURATION 28 %; TIBC 243 ug/dL; TOTAL IRON 69 ug/dL (53-167); UNBOUND IRON 174 ug/dL (112-346)
[2019-01-16 06:08] LABS: BASO# 0.14 X1000 (0.0-0.2); BASO% 1.3 % (0.0-0.8); EOS# 0.45 X1000 (0.0-0.7); EOS% 4.1 % (0.0-10.0); HEMOGLOBIN 12.3 g/dL (14.0-18.0); IMM GRAN# 0.28 X1000 (0.0-0.04); IMM GRAN% 2.5 % (0.0-0.5); LYMPH# 3.16 X1000 (1.2-3.4); LYMPH% 28.5 % (20.5-51.1); MCH 34.3 PG (27-31); MCHC 31.5 g/dL (33-37); MCV 108.6 FL (81-99); MONO# 0.94 X1000 (0.11-0.59); MONO% 8.5 % (1.7-9.3); MPV 10.4 FL (7.4-10.4); NEUT# 6.13 X1000 (1.4-6.5); NEUT% 55.1 % (42.2-75.2); PLT 292 X1000 (130-400); RBC 3.59 XMIL (4.7-6.1); RDW 15.1 % (11.5-14.5)
[2019-01-16 06:26] LABS: FERRITIN 146 ng/mL (30-400)
[2019-01-16] MEDS ORDERED: KLOR-CON PO ONE (07:20)
--- NOTE | 2019-01-16 07:50 | INFECTIOUS DISEASE PROGRESS NO ---
DATE: 01/16/2019 PRESENT ILLNESS: The patient was thought to be admitted to the hospital with pneumonia and there may have been a component of aspiration. The patient's procalcitonin is back and it is less than 0.1 which translates into that the patient's pulmonary process is very unlikely to be pneumonia. MEDICATIONS: The patient was yesterday switched to Zosyn. This is day #1 of using Zosyn. PHYSICAL EXAMINATION: Vital Signs: Temperature is 99.2 degrees, pulse 75, respirations 21, blood pressure is 123/56. General: This is a chronically ill-appearing and malnourished-appearing, elderly male. He is in no acute distress, however. Head, Eyes, Ears, Nose, and Throat: No drainage is noted from the nose or ears. Neck: It did not seem like the patient was having any pain when he moved his neck. Lungs: Bilateral rhonchi. Cardiovascular: Heart rate is regular. Abdomen: Soft and nontender. Neurologic: The patient was awake. He did not answer questions. He did not move his extremities to my request. He does not have a tremor. LAB AND X-RAY: As mentioned above, the patient's procalcitonin level is less than 0.1 which translates into the patient is very unlikely to have pneumonia. His white count did fall, though. It is 11,100, hemoglobin is 12.3, and platelet count is 292,000. Creatinine is 1.3. GFR is 55. Chest x-ray shows marked improvement in the left basilar infiltrate. ASSESSMENT AND PLAN: It is possible that the patient does not have pneumonia according to the procalcitonin level. I think, however, that the patient does have pneumonia, most likely secondary to aspiration. It is getting better since we switched to Zosyn both on the x-ray and also the patient's white blood cell count is falling. I think the patient can be discharged. I would suggest treating him as an outpatient with the combination of Augmentin 875 mg and ciprofloxacin 500 mg, both being given orally every 12 hours for another 7 days. While the patient is on ciprofloxacin, the patient's Aricept should be withheld because ciprofloxacin can interact with Aricept to increase the QT interval. Once the patient is done with ciprofloxacin, then his Aricept can be restarted. I am signing off of the patient's case now. COMORBIDITIES: The patient is an alcoholic. He also has dementia and an adjustment disorder. As mentioned above, I am signing off of the patient's case but I am available to see the patient on a p.r.n. basis. cc: Yovanny Toribio MD
[2019-01-16] MEDS: VITAMIN B-12 PO SCH (08:07)
[2019-01-16] MEDS: NAMENDA PO SCH (08:07)
[2019-01-16] MEDS: PEPCID PO SCH (08:07)
[2019-01-16] MEDS: ASPIRIN EC PO SCH (08:07)
[2019-01-16] MEDS: HYDROCHLOROTHIAZIDE PO SCH (08:07)
[2019-01-16] MEDS: PROZAC PO SCH (08:07)
[2019-01-16] MEDS: VITAMIN B-1 PO SCH (08:07)
[2019-01-16] MEDS: NON-FORMULARY MED PO SCH (08:08)
[2019-01-16] MEDS: HEPARIN SUBQ SCH (08:08)
[2019-01-16] MEDS: PROVERA PO SCH (08:08)
[2019-01-16 08:39] VITALS: BP 118/57
[2019-01-16] MEDS ORDERED: FOLIC ACID PO SCH (09:00)
[2019-01-16] MEDS: LOPRESSOR PO SCH (09:22)
--- NOTE | 2019-01-16 10:12 | DISCHARGE SUMMARY ---
ADMISSION DATE: 01/09/2019 DISCHARGE DATE: DISCHARGE DIAGNOSES: 1. Acute hypoxemic respiratory failure due to pneumonia. 2. Bilateral lower lobe pneumonia. 3. Hypertension. 4. Benign prostatic hypertrophy. 5. Dementia and basically this patient is bed-bound. 6. Situational depression. 7. History of alcohol dependence. 8. Physical deconditioning and generalized weakness. CONSULTATIONS: Infectious Disease Department, Dr. Yovanny Toribio. PROCEDURES PERFORMED: 1. Chest x-ray dated 01/08/2019. Impression: A small left bibasilar infiltrate versus atelectasis. 2. Head CT dated 01/09/2019. Impression: Stable chronic changes, no evidence of acute intracranial pathology. 3. Chest x-ray dated 01/10/2019. Impression: Worsening ill-defined interstitial infiltrate in the lung bases bilaterally. 4. Chest x-ray dated 01/12/2019. Impression: Mild interval worsening. 5. Chest CT scan dated 01/13/2019. Impression: Moderate patchy airspace infiltrates involving the left lower lung zone and very mild infiltrates at the right lower lung zones suggesting pneumonia and likely compartment of atelectasis on the left. 6. Chest x-ray dated 01/15/2019. Marked improvement in the left basilar pneumonia. HOSPITAL COURSE: A 68-year-old male admitted on 01/09/2019 and sent from [facility] due to the patient being altered more than usual. He has multiple problems including hypertension, previous alcohol dependence and BPH, and basically he is bed-bound, vascular dementia and adjustment disorder. Apparently, he was not arousable at the facility and he was brought to the emergency department. He was moderately confused and he is still confused, but I believe this is his baseline. He was able to answer a few questions and there was no family to provide any other history. CT scan of the head did not show any abnormality. Chest x-ray showed pneumonia. We started treating this patient with pneumonia, he was hypoxemic and having respiratory failure, so he was placed also on breathing treatment and oxygen supplementation. The patient has not been having problems urinating or having bowel movements. CT scan of the chest showed moderate patchy airspace infiltrates at the level of the left lower lung and mild infiltrates on the right side, with some atelectasis. We continued with broad spectrum antibiotics. He was improving on a daily basis. We asked for procalcitonin level which is basically normal. Also, we repeated a new x-ray yesterday that showed a marked improvement in the left basilar pneumonia. This patient seems to be feeling better. He is more stable. He is tolerating p.o. and again, he is bed-bound. Dr. Toribio from Infectious Disease Department evaluated this patient and he has recommended to continue treatment with levofloxacin and Augmentin. We recommend to hold Aricept for a week since this patient also will be taking ciprofloxacin which can cause QT prolongation. So this patient will be discharged and he will go back to his care home. He seems to be stable. PHYSICAL EXAMINATION: Vital signs: Temperature 99.2 degrees, pulse 65, respiratory rate 14, oxygen saturation 100% on 2 L of nasal cannula. HEENT: Head normocephalic, no trauma. PERRLA. He has a rash which is chronic, it looks like dermatitis, on his face. Neck: Supple. No JVD. Central trachea. Chest: Clear to auscultation. Some crepitus at the level of the left base. Abdomen: Soft, nontender, nondistended. No hepatosplenomegaly. Extremities: No edema, no clubbing, no cyanosis. Some contraction at the level of the lower extremity with some decreased muscle mass. Neurological: The patient is awake, he is alert, he is following commands. He is able to say his name and date of . He is not oriented to place or time. LABORATORY DATA: WBC 11.1, hemoglobin 12.3, hematocrit 39, platelet 292,000. Sodium 138, potassium 3.2, chloride 101, bicarbonate 24, BUN 12, creatinine 1.3, glucose 127, calcium 8.9. DISCHARGE MEDICATIONS: 1. Augmentin 875 mg p.o. q.12 hours for 1 week. 2. Harish packet 1 tablet p.o. b.i.d. 3. Aspirin 81 mg p.o. daily. 4. Ciprofloxacin 500 mg p.o. q.12 hours for 1 week. 5. Cyanocobalamin 2000 mcg p.o. daily. 6. Depakote 500 mg p.o. at bedtime. 7. Donepezil/Aricept 10 mg p.o. at bedtime, which we recommended to hold for 1 week while he is taking antibiotics, especially ciprofloxacin. 8. Pepcid 40 mg p.o. daily. 9. Prozac 20 mg p.o. daily. 10. Folic acid 1 mg p.o. daily. 11. Hydrochlorothiazide 25 mg p.o. daily. 12. Provera 20 mg p.o. daily. 13. Namenda 10 mg p.o. b.i.d. 14. Metoprolol 25 mg p.o. daily. 15. Remeron 15 mg p.o. at bedtime. 16. Xarelto 2.5 mg p.o. b.i.d. 17. Potassium chloride 20 mg p.o. daily. 18. Tamsulosin 0.4 mg p.o. at bedtime. 19. Thiamine 100 mg p.o. daily. 20. Tramadol 50 mg p.o. q.8 hours p.r.n. pain. TIME DISCHARGING THIS PATIENT: 35 minutes. cc: Bryant Freedman MD
== END 2019-01-16 11:34 | DRG 177 ==
LOC: ED 20:44 → 1N 01-09 03:11 → SUATTDRO 01-09 03:11 → 1N 01-10 19:41
PROVIDERS: ATTEND Internal Medicine